=== PATIENT | female | born 1965 | race Asian ===

== ENCOUNTER 2021-04-04 18:24 | Emergency (ER) | payer OTHER ==
[~2021-04-04] VITALS: Ht 157.5 cm; Wt 72.7 kg
[2021-04-04] MEDS ORDERED: AMLO5TAB66 PO (18:56)
[2021-04-04] MEDS ORDERED: METF-446 PO (18:56)
[2021-04-04] MEDS ORDERED: ASPI-1444 PO (18:56)
[2021-04-04] MEDS ORDERED: GLIP10TA9 PO (18:56)
[2021-04-04 19:18] LABS: ANION GAP 15 mmol/L (8-16); CALCIUM, TOTAL 9.5 mg/dL (8.8-10.5); CARBON DIOXIDE 23 mmol/L (22-29); CHLORIDE 103 mmol/L (98-107); CREATININE 0.72 mg/dL (0.60-1.30); GLOMERULAR FILTR. RATE CALC > 60 mL/min (>60); GLUCOSE,RANDOM 119 mg/dL (70-110); POTASSIUM 3.3 mmol/L (3.5-5.1); SODIUM SERUM 141 mmol/L (136-145); UREA NITROGEN, BLOOD 9 mg/dL (7-18)
[2021-04-04 19:21] LABS: COVID AG,FIA SOURCE NASOPHARYNGEAL
[2021-04-04 19:28] LABS: HEMATOCRIT 31.1 % (36-46); HEMOGLOBIN 9.8 g/dL (12.0-16.0); MEAN CORPUSCULAR HEMOGLOBIN 26.3 pg (26.0-34.0); MEAN CORPUSCULAR HGB CONC 31.5 G/dL (31.0-37.0); MEAN CORPUSCULAR VOLUME 84 fL (80-100); PLATELET COUNT (AUTO) 335 K/uL (150-450); RED BLOOD CELL COUNT(AUTO) 3.73 MIL/uL (4.00-5.20); RED CELL DISTRIBUTION WIDTH 21.3 % (11.5-14.5)
[2021-04-04 20:04] VITALS: BP 164/55
[2021-04-04 20:05] LABS: GLUCOMETER DEV NAME(LOC) ERT.5; GLUCOSE,POINT OF CARE 93 MG/DL (70-110)
[2021-04-04 20:14] LABS: BAND NEUTROPHILS % (MANUAL) 17 % (0-5); LYMPHOCYTES % (MANUAL) 12 % (22-44); METAMYELOCYTES % 1 % (0-0); MONOCYTES % (MANUAL) 11 % (2-9); MYELOCYTES % 1 % (0-0); SEGMENTED NEUTROPHILS % 58 % (40-70)
== END 2021-04-04 22:30 | disposition short-term general hospital (02) ==
LOC: EMS 18:24
DX: E11.649 Type 2 diabetes mellitus with hypoglycemia without coma (principal); C79.81 Secondary malignant neoplasm of breast; E11.9 Type 2 diabetes mellitus without complications; I10 Essential (primary) hypertension; Z20.822 Contact with and (suspected) exposure to COVID-19
CPT/HCPCS: 80048; 82948; 82962; 85025; 99285